=== PATIENT | female | born 1955 ===

== ENCOUNTER 2021-12-31 08:46 | Day surgery (SDC) | payer OTHER ==
[~2021-12-31] VITALS: Ht 165.1 cm; Wt 54.9 kg
== END 2021-12-31 15:00 | disposition home or self-care (01) ==
LOC: CIR.AMB 08:46
PROVIDERS: ATTEND Orthopaedic Surgery
DX: M77.11 Lateral epicondylitis, right elbow (principal); M67.931 Unspecified disorder of synovium and tendon, right forearm; M24.821 Other specific joint derangements of right elbow, not elsewhere classified; Z20.822 Contact with and (suspected) exposure to COVID-19